=== PATIENT | female | born 1990 | race Caucasian/White ===

== ENCOUNTER 2017-07-01 08:10 | Emergency (ER) | payer OTHER ==
[2017-07-01 08:16] VITALS: BP 138/86
--- NOTE | 2017-07-01 08:40 | EDPHY ---
H & P Stated Complaint: L hand lac Time Seen by Provider: 07/01/17 08:33 HPI/ROS: Chief Complaint: Hand laceration to the left hand HPI: The patient presents to the ED with a left hand laceration that occurred at work earlier today. She cut herself with a sharp knife. She sustained a 1 cm laceration to the dorsal aspect of her 2nd MCP joint. The patient denies any acute numbness or weakness. She denies additional complaints. REVIEW OF SYSTEMS: Neuro: no headache, numbness, weakness Musculoskeletal: as above Skin: As above Source: Patient - Personal History LMP (Females 10-55): 8-14 Days Ago Current Tetanus/Diphtheria Vaccine: Yes Current Tetanus Diphtheria and Acellular Pertussis (TDAP): Yes Tetanus Vaccine Date: 2015 - Medical/Surgical History Hx Asthma: Yes Hx Chronic Respiratory Disease: No Hx Diabetes: No Hx Cardiac Disease: No Hx Renal Disease: No Hx Cirrhosis: No Hx Alcoholism: No Hx HIV/AIDS: No Hx Splenectomy or Spleen Trauma: No Other PMH: nasal septum surgery, asthma - Social History Smoking Status: Never smoked - Physical Exam Exam: General Appearance: Alert, no distress Neurological: Sensation intact to light touch and normal motor function appreciated throughout the entire left hand Skin: 1 cm laceration noted over the dorsal aspect of the 2nd MCP joint. No evidence of joint or tendon involvement. Musculoskeletal: Normal range of motion Extremities: symmetrical, full range of motion Constitutional: Initial Vital Signs Temperature (C) 36.8 C 07/01/17 08:14 Heart Rate 88 07/01/17 08:14 Respiratory Rate 16 07/01/17 08:14 Blood Pressure 138/86 H 07/01/17 08:14 O2 Sat (%) 98 07/01/17 08:14 O2 Delivery Mode Room Air Allergies/Adverse Reactions: No Known Allergies Allergy (Unverified 07/01/17 08:13) Home Medications: Medication Instructions Recorded NK [No Known Home Meds] 07/01/17 Medical Decision Making Procedures: Procedure: Laceration repair. Verbal consent was obtained from the patient. The 1 cm laceration on the dorsal aspect of the left hand was anesthetized using lidocaine and epinephrine. The wound was irrigated per protocol, draped and explored to its base with a gloved finger. There were no deep structures involved. No tendon injury was identified. The wound was repaired with three 5-0 Ethilon sutures. The wound repair was simple. The procedure was performed by myself. ED Course/Re-evaluation: The patient presents to the ED after she sustained a laceration to her left hand. She is neurologically intact. The wound was repaired by myself without complication. Departure - Departure Disposition: Home, Routine, Self-Care Clinical Impression: Laceration of left hand Qualifiers: Encounter type: initial encounter Foreign body presence: without foreign body Qualified Code(s): S61.412A - Laceration without foreign body of left hand, initial encounter Condition: Good Instructions: Laceration (ED), Care For Your Stitches (DC) Additional Instructions: 1. Please return to the emergency department in 12 days for suture removal. 2. Apply antibiotic ointment twice daily as directed. 3. Return to the ED for any pain, redness, swelling or fever. Referrals: Soumya Savage MD [Primary Care Provider] - As per Instructions
== END 2017-07-01 09:05 | disposition home or self-care (01) ==
PROC: 0HQGXZZ Repair Left Hand Skin, External Approach (ICD-10-PCS; principal; 2017-07-01)
DX: S61.412A Laceration without foreign body of left hand, initial encounter (principal); J45.909 Unspecified asthma, uncomplicated; W26.0XXA Contact with knife, initial encounter